=== PATIENT | female | born 1945 | race Caucasian/White ===

== ENCOUNTER → 2017-02-11 | Outpatient (CLI) | payer MEDICARE, BC ==
[~2017-02-11] MED LIST: ACETAMINOPHEN PO; AMBIEN10 MG PO; BAYER ASPIRIN325 M1 PO; CLARITIN10 M1 PO; CLARITIN5 MG PO; CRESTOR PO; EFFEXOR PO; FLONASE 0.05% N16 G1; GABAPENTIN300 MG PO; HYDROCODON-ACE1 EAC9 PO; HYDROCODONE-APA1 T54 PO; LASIX PO; LORTAB 7.5-5001 TAB PO; LOVASTATIN10 MG PO; MELATONIN10 M1 PO; MELOXICAM15 MG PO; MOBIC PO; OMEPRAZOLE20 M2 PO; OMEPRAZOLE40 M1 PO; OXYCODONE-ACET1 EACH PO; PAIN RELIEF500 M1 PO; PAIN RELIEVER500 M4 PO; PREMARIN PO; TOFRANIL25 MG PO; TOPROL XL PO; VIT B 12 PO; VITAMIN B12-FO1 EACH PO; VITAMIN D 4001 UDTAB PO; VITAMIN D-3 4001 TAB PO; VITAMIN D31000 UNI1 PO; ZETIA PO
--- NOTE | ~2017-02-11 | MY11 ---
[facility] A Service [facility] RADIOLOGY TEXT RESULTS PATIENT: NAGA BORDEN LOCATION: [facility] : 41 UNIT #: [id number] AGE: [address]: JAMAR LYNN MD SEX: F ORDER DR: [id number] [facility] [address] [place] [address] [place], [place] [address] [id number] O MR#: [id number] Acc #: [id number] NAME: NAGA BORDEN : 1945 SEX: F STUDY DATE/TIME: 02/11/2017 11:06 UNIT: [facility] ROOM: STUDY DESCRIPTION: MY Mammogram Screening Dig Baljeet Attending Physician: Jamar Lynn M.D. Referring Physician: Jamar Lynn M.D. Ordering Physician: Jamar Lynn M.D. Primary Care Physician: Jamar Lynn M.D. MEDICAL IMAGING REPORT This report is preliminary unless electronic signature is present EXAM Digital screening mammogram, 02/11/2017 HISTORY 71-year-old woman no risk elevation. Annual screening. COMPARISON Mammograms date to 01/03/2006 with most recent 02/09/2016. FINDINGS Digital imaging of each breast was completed utilizing a two-view examination of each breast in craniocaudal and mediolateral-oblique projections. Review and interpretation of digital mammograms include a second review in conjunction with FDA-approved CAD device. There is a normal parenchymal presentation bilaterally consistent with the patient's age. There are no breast masses imaged and no parenchymal asymmetry is visualized. There are no suspicious microcalcifications and I see no focal architectural disturbance. IMPRESSION Negative screening digital mammogram. One-year followup recommended. Patients over the age of 40 are entered into a reminder system with target due date for the next mammogram. A result letter will also be sent to the patient. BIRADS: 1 Negative Dictated by... Carlos Augustine M.D. THIS IS AN ELECTRONICALLY VERIFIED REPORT [facility] A [facility] RADIOLOGY TEXT RESULTS PATIENT: NAGA BORDEN LOCATION: [facility] : 41 UNIT #: [id number] AGE: [address]: JAMAR LYNN MD SEX: F ORDER DR: Carlos Augustine M.D. at 02/11/2017 3:31 PM Citlali TD: 02/11/2017 13:02 JOB #: [id number] MEDICAL IMAGING REPORT Page 1 of 1 COPY
== END | disposition home or self-care (01) ==
LOC: CWCC 10:32
DX: Z12.31 Encounter for screening mammogram for malignant neoplasm of breast (principal)
CPT/HCPCS: G0202